=== PATIENT | female | born 1950 | race Caucasian/White ===

== ENCOUNTER 2018-07-03 09:01 | Outpatient (CLI) | payer OTHER, SELFPAY ==
[2018-07-03 12:31] LABS: Cholesterol 217 mg/dL (50-200); HDL Cholesterol 53 mg/dL (40-60); LDL CHOLESTEROL 136 mg/dL (<100); Triglyceride 172 mg/dL (30-150)
== END 2018-07-03 09:21 ==
LOC: LOS 09:02 → LBN 09:21
PROVIDERS: PCP Emergency Medicine; Visit Provider Emergency Medicine
DX: E78.5 Hyperlipidemia, unspecified (principal)
CPT/HCPCS: 36415; 80061; 83721

== ENCOUNTER 2018-08-04 00:08 | Outpatient (CLI) | payer OTHER, SELFPAY ==
--- NOTE | 2018-08-04 05:40 | MERGEMPI_ITS ---
*[facility]* *[facility]* [address] [place] [address] Myocardial Perfusion Imaging - SPECT Micha protocol Date of study: 08/04/2018 *PATIENT PRESENTATION* Height: 170.2cm (67in) Blood Pressure: Weight: 77.3kg (170lb) BSA: 1.93m^2 Referring physician: Leo Moise MD Ordering physician: Andrea Kay Impressions: Normal perfusion by Tc99m Sestamibi Imaging. Summary: 1. Myocardial perfusion imaging: No myocardial perfusion defects noted. 2. The calculated left ventricular ejection fraction after stress: 80%. Indication: R06.02. History: Patient's presenting symptoms: asymptomatic. REASON FOR VISIT: DYSPNEA ON EXERTION. PATIENT REPORTS 2 SEPARATE EPISODES OF SHORTNESS OF BREATH WHILE WALKING UP HILL, AND AGAIN WHILE WALKING UP STAIRS. PATIENT REPORTS THIS SHORTNESS OF BREATH IS NOT HER NORMAL. PATIENT DENIES ANY CHEST PAIN OR PRESSURE. PAST MEDICAL HISTORY: HYPOTHYROIDISM, HYPERLIPIDEMIA. Risk factors: Family history of coronary artery disease. Dyslipidemia. Cholesterol: 217mg/dl. HDL: 53mg/dl. LDL: 136mg/dl. Triglycerides: 172mg/dl. ALLERGIES: SULFA. SHELLFISH. AZITHROMYACIN. FLU VACCINE. MEDICATIONS: ASPIRIN 81 MG DAILY. LEVOTHYROXINE 88 MCG DAILY. CRESTOR 20 MG DAILY. VITAMIN B12 1000 MCG IM Q 3 WEEKS. DOCOSATE SODIUM 2 CAPSULES Q HS. Imaging Technique: Protocol: Micha protocol. Acquisition: Gated SPECT; 1 day - rest/stress. The patient was imaged in the supine position. Attenuation correction used. Isotope administration: - Rest. Tc[99m]-sestamibi. Dose: 10.2mCi. Injection time: 08:15 AM. Injection to stress time: 00:45. - Stress. Tc[99m]-sestamibi. Dose: 31.8mCi. Injection time: 09:55 AM. 1-2 min before end of exercise Baseline ECG: SINUS RHYTHM, INCOMPLETE BUNDLE BRANCH BLOCK. HEART RATE 72 BPM. Stress protocol: + +---+ + !Stage !HR !BP (mmHg) ! + +---+ + !Baseline supine !72 !160/86 (111)! + +---+ + !Baseline standing !91 !150/84 (106)! + +---+ + !Stage I; 1.7mph, 10degrees; 3 min !130!218/80 (126)! + +---+ + !Stage II; 2.5mph, 12degrees; 3 min!148!220/70 (120)! + +---+ + !Recovery; 1 min !138!220/70 (120)! + +---+ + !Recovery; 3 min !101!190/70 (110)! + +---+ + !Recovery; 6 min !90 !160/72 (101)! + +---+ + * Stress results: The rate-pressure product for the peak heart rate and blood pressure was 50429ta Hg/min. Stress ECG: TREADMILL PORTION OF MPI STRESS TEST ENDED IN 7MIN DUE TO PATIENT REACHING 100% TARGET HEART RATE. HYPERTENSIVE AT BASELINE. APPROPRIATE HEART RATE AND BLOOD PRESSURE RESPONSE TO EXERCISE. MAXIMAL HEART RATE ACHIEVED 160 BPM, 105% OF TARGET. RARE PVC NOTED IN RECOVERY. 05/22 LEFT SIDED CHEST TIGHTNESS NOTED AT THE END OF STAGE 2, RESOLVED WITH CESSATION OF EXERCISE. UPSLOPING ST SEGMENT DEPRESSION NOTED IN LEADS V3, V4, V5, AND V6 AT 2 MIN EXERCISE, RETURNING TO BASELINE BY 3 MINUTES RECOVERY. ABOVE AVERAGE FUNCTIONAL CAPACITY FOR EXERCISE. Myocardial perfusion: Imaging information: gated. No myocardial perfusion defects noted. Ventricular Function (Wall Motion): The calculated left ventricular ejection fraction after stress: 80%. Study data: Leo Moise MD supervised and was readily available during the procedure. This study was interpreted by [facility]. Study status: Routine. Consent: The risks, benefits, and alternatives to the procedure were explained to the patient and informed consent was obtained. Procedure: Initial setup. A baseline ECG was recorded. Surface ECG leads and manual cuff blood pressure measurements were monitored. Heart sounds: Normal. Lung sounds: Normal. Treadmill exercise testing was performed using the Micha protocol. Study completion: All catheters inserted during the procedure were removed. The patient tolerated the procedure well and was discharged from the lab. Discharge: The patient left the laboratory in stable condition. Birthdate: Patient birthdate: 1950. Sex: Gender: female. Study date: Study date: 08/04/2018. Study time: 00:01 AM. Electronically signed by Leo Moise MD 08/04/2018 16:51
== END 2018-08-04 00:28 ==
PROVIDERS: PCP Emergency Medicine; Visit Provider Emergency Medicine
DX: R06.02 Shortness of breath (principal); E78.5 Hyperlipidemia, unspecified; E03.9 Hypothyroidism, unspecified; Z82.49 Family history of ischemic heart disease and other diseases of the circulatory system
CPT/HCPCS: 78452; 93017

== ENCOUNTER 2018-09-26 13:57 | Outpatient (CLI) | payer OTHER, SELFPAY ==
--- NOTE | 2018-09-26 14:41 | DI.CT_ITS ---
SYMPTOMS/DIAGNOSIS: ACUTE LEFT FLANK PAIN, R10.[address]: A noncontrast exam was performed from the level of the adrenals through the ischial tuberosities without IV or oral contrast. There is no evidence of hydronephrosis or urinary tract calculi. A cyst is noted at the upper pole of the right kidney. The kidneys are normal in size and orientation. No perinephric collections are seen. The inferior portions of the liver and spleen are unremarkable. The gallbladder, adrenals and pancreas appear normal. The appendix appears normal. There is a normal quantity of fecal material. There is no bowel dilatation or inflammatory changes. The uterus and ovaries are unremarkable. The bladder is nearly empty. The aorta is normal in diameter. Degenerative disc changes are seen at L1-2. IMPRESSION: No evidence of urinary tract calculi or other acute abnormality.
== END 2018-09-26 14:17 ==
PROVIDERS: PCP Emergency Medicine; Visit Provider Emergency Medicine
DX: R10.32 Left lower quadrant pain (principal); N28.1 Cyst of kidney, acquired
CPT/HCPCS: 74176

== ENCOUNTER 2019-02-20 00:12 | Outpatient (CLI) | payer OTHER, SELFPAY ==
--- NOTE | 2019-02-20 09:07 | DI.RAD_ITS ---
EXAM: XR HIP RT COMPLETE AP PELVIS INDICATION: right hip pain, ARTHRALGIA OF RT HIP, M25.559. COMPARISON: No exams were available for comparison TECHNIQUE: 2D digital imaging was performed. FINDINGS: The bony structures are normally mineralized. The hip joint is intact. No pelvic bone abnormality is seen. IMPRESSION: Normal right hip.
== END 2019-02-20 00:32 ==
PROVIDERS: PCP Emergency Medicine; Visit Provider Emergency Medicine
DX: M25.551 Pain in right hip (principal)
CPT/HCPCS: 73502

== ENCOUNTER 2019-07-14 10:36 | Outpatient (REF) | payer OTHER, SELFPAY ==
[2019-07-14 14:29] LABS: Bilirubin Negative (Negative); Blood Negative (Negative); Clarity Clear (Clear); Glucose Negative (Negative); Ketones Negative (Negative); Leukocyte Esterase Moderate (Negative); Nitrite Negative (Negative); Specific Gravity 1.015 (1.005-1.025); Urobilinogen 0.2 EU/dL (Up TO 0.2); pH 7.5 (5-8)
[2019-07-14 14:47] LABS: Epithelial Cells Few HPF (Negative); RBC 0-2 HPF (0-2)
[2019-07-14 14:48] LABS: Bacteria Moderate HPF (Negative); C & S Indicated? C&S Done As Ordered; Casts Negative LPF (Negative); Crystals Negative HPF (Negative); Mucus Negative (Negative)
== END 2019-07-14 10:56 ==
LOC: LBN 10:36
PROVIDERS: PCP Emergency Medicine; Visit Provider Family Medicine
DX: R30.0 Dysuria (principal)
CPT/HCPCS: 87077; 81003; 81015; 87086; 87186

== ENCOUNTER 2019-09-29 20:52 | Outpatient (REF) | payer OTHER, SELFPAY ==
[2019-09-29 20:08] LABS: Calculated LDL 147 mg/dL (<100); Cholesterol 227 mg/dL (<200); HDL Cholesterol 52 mg/dL (40-60); TSH 1.28 uIU/mL (0.36-3.74); Triglyceride 141 mg/dL (<150)
== END 2019-09-29 21:12 ==
LOC: LBN 20:52
PROVIDERS: PCP Emergency Medicine; Visit Provider Emergency Medicine
DX: E03.9 Hypothyroidism, unspecified (principal); E78.5 Hyperlipidemia, unspecified
CPT/HCPCS: 80061; 84443

== ENCOUNTER 2020-01-17 07:35 | Emergency (ER) | payer OTHER, SELFPAY ==
[2020-01-17] VITALS (9 sets, daily range): BP systolic 117–169; BP diastolic 58–80; PULSE 61–84; RESP 11–17; TEMP 36.7; O2SAT 98–100
[2020-01-17 07:47] LABS: Bilirubin Negative (Negative); Blood Negative (Negative); Clarity Clear (Clear); Glucose Negative (Negative); Ketones Negative (Negative); Leukocyte Esterase Negative (Negative); Nitrite Negative (Negative); Specific Gravity 1.015 (1.005-1.025); Urobilinogen 0.2 EU/dL (Up TO 0.2)
[2020-01-17] MEDS: Normal Saline 1,000 ML 125 ML IV (08:00)
[2020-01-17] MEDS: Normal Saline Flush 10 ML SYR IVP (08:00)
--- NOTE | 2020-01-17 08:15 | DI.CT_ITS ---
EXAM: CT ABDOMEN PELVIS W CLINICAL HISTORY: LLQ pain 3 days, tender, nonperitoneal, ua neg. TECHNIQUE: Imaging Protocol: Axial computed tomography images with coronal and sagittal reformatted images were created and reviewed CONTRAST MATERIAL: Intravenous: Omnipaque 350 Contrast volume:80 cc. No oral contrast. COMPARISON: CT CT renal colic wo from 09/26/2018 FINDINGS: ABDOMEN: Lung Bases: Normal where visualized. Liver: Normal density. No measurable mass. Gallbladder and biliary tract: No radiodense calculus or dilation. Pancreas: Normal density, no abnormal calcifications or inflammatory process. Spleen: Normal. Kidneys: Normal size, contour and axis. No radiodense stones or obstructive uropathy. No masses seen. Right renal cyst. Adrenal glands: No masses seen. Abdominal Aorta: Abdominal portion non-dilated. There are surgical clips adjacent to the left side of the aorta. Superior to the surgical clips, to the left of the aorta, there is an elongated low dens ity lesion measuring 7 cm in length. The findings could represent adenopathy versus post operative c ollection. This appears unchanged when compared with the previous exam. Clinical correlation is rec ommended. PELVIS: Bladder: Symmetric distention, no gross wall thickening. Bowel: There is wall thickening and inflammation at the junction of the descending and sigmoid colon, consistent with diverticulitis. There is a normal quantity of stool. There is no evidence of obstr uction. There is no evidence of abscess. Peritoneal cavity: No free air. There is trace free fluid. Bones: Within normal limits. Reproductive organs: Within normal limits. Impression: Diverticulitis at the junction of the descending and sigmoid colon. Stable appearance of elongated d ensity adjacent to the left side of the aorta which could be postsurgical. RADIATION DOSE DELIVERED: Total DLP DATA REPOSITORY: All CT scans at this facility are submitted to the National Radiology Data Registry (NRDR) Dose Index Registry (DIR) with the [employer] (ACR). RADIATION OPTIMIZATION: All CT scans at this facility use at least one of these dose optimization te chniques: automated exposure control; mA and/or kV adjustment per patient size (includes targeted exa ms where dose is matched to clinical indication); or iterative reconstruction.
--- NOTE | 2020-01-17 08:23 | ED.GENADUL_ITS ---
Discharge Plan Disposition Patient Disposition: HOME Condition: Stable Discharge Details Chief Complaint: Abd Prob Clinical Impression: Acute diverticulitis Primary Care Provider: Andrea Kay ED Provider: Deondre Glynn Home Meds and New Rx's Prescriptions: New amoxicillin-pot clavulanate 875-125 mg tablet 1 tab PO BID Qty: 19 RF: 0 Continued cyanocobalamin (vitamin B-12) 1,000 MCG/1 ML solution 1,000 mcg IJ [id number] RF: 0 simvastatin [Zocor] 20 mg tablet 20 mg PO DAILY Qty: 90 RF: 3 levothyroxine 88 mcg tablet 88 mcg PO DAILY Qty: 90 RF: 3 Discharge Instructions Instructions: Diverticulitis (ED), Diverticulitis Diet (ED) Additional Instructions: Please take acetaminophen (tylenol) - 650mg every 6 hours by mouth as needed for pain. Please take ibuprofen over the counter. Take 600mg by mouth every 6 hours as needed for pain. Please take full course of antibiotic as prescribed. See instructions on diverticulitis diet. I recommend maintaining a clear liquid diet today to allow for bowel rest. Please contact your primary care physician to arrange follow-up. Call on Saturday. Return to the ER for any worsening or new concerning symptoms. Referrals: Andrea Kay, DO [Primary Care Provider] - Medical Decision Making A [age]-year-old female here with left lower quadrant pain with past 3 to 4 days, tender left lower quadrant with no peritoneal findings. Concern for acute diverticulitis, consider microperforation and abscess. Patient has not had similar in the past. Consider other etiologies. Urinalysis reviewed and is not consistent with a renal stone. Obtain CT of the abdomen pelvis to assess for acute surgical pathology. Maintain n.p.o., IV fluid maintenance. 9:50 --CT the abdomen pelvis was interpreted by radiology: Segment of wall t hickening at the junction of the sigmoid and descending colon, consistent with mild acute diverticulitis. No evidence of perforation or drainable collection. Trace pelvic ascites. Plan to initiate treatment with Augmentin and have patient follow-up with her primary care physician. Usual and customary discharge instructions were reviewed with the patient. HPI General Mode of arrival: ambulatory . Date/Time Provider Initiated Documentation: 01/17/20 08:05 . Limitations to Documentation: no limitations . Information obtained by: patient . HPI Narrative: 69-year-old female presents with chief complaint of left lower quadrant pain. Pain is been present for the past 3 to 4 days. Pain is constant and severe. Pain worse on palpation of the left lower abdomen. She has associated nausea. No vomiting. She did have some loose stool yesterday. No bright red blood per rectum or melena. No fever. No urinary symptoms. Related Data Home Medications Medication Instructions Recorded Confirmed cyanocobalamin (vitamin B-12) 1,000 mcg IJ [id number] vial 12/05/12 01/17/20 simvastatin 20 mg tablet 20 mg PO DAILY #90 tab 12/30/18 01/17/20 levothyroxine 88 mcg tablet 88 mcg PO DAILY #90 tab-cap 04/10/19 01/17/20 amoxicillin-pot clavulanate 1 tab PO BID #19 tab 01/17/20 Previous Rx's Medication Instructions Recorded simvastatin 20 mg tablet 20 mg PO DAILY #90 tab 12/30/18 levothyroxine 88 mcg tablet 88 mcg PO DAILY #90 tab-cap 04/10/19 amoxicillin-pot clavulanate 1 tab PO BID #19 tab 01/17/20 Allergies Allergy/AdvReac Type Severity Reaction Status Date / Time influenza virus vaccine, Allergy Severe THROAT Unverified 01/17/20 07:47 specific ISSUES 1.5 HRS AFTER INJECTION shellfish derived Allergy Unknown Unverified 01/17/20 07:47 Sulfa (Sulfonamide Allergy Unknown Unverified 01/17/20 07:47 Antibiotics) azithromycin AdvReac Severe PALPITATIONS, Unverified 01/17/20 07:47 VISUAL CHANGES, THRUSH erythromycin base AdvReac Unknown Unverified 01/17/20 07:47 General Stated Complaint: Abd Prob CHRISTOPHE: 3 Review of Systems All systems reviewed & are unremarkable except as noted in HPI and below Constitutional Constitutional: Denies fever(s) Gastrointestinal Gastrointestinal: Reports as per HPI COUNT INCLUDES [facility] Medical History (Updated 01/17/20 @ 09:52 by Deondre Glynn MD) Atrophic gastritis (Acute) Elevated lipids (Acute) Right hip pain (Acute) Surgical History Tonsillectomy Family History Mother Lumbago Father Myocardial infarction Maternal Aunt Myocardial infarction Family History Heart disease Neoplasm BREAST Exam Const General: cooperative and no acute distress HENMT Mouth: moist mucous membranes Eyes Conjunctivae: normal conjunctivae Sclera: normal sclerae Neck Neck: trachea midline and supple Resp Auscultation: clear to auscultation bilaterally, no rales, no rhonchi and no wheezes Cardio Rate: regular rate and not tachycardic Rhythm: regular rhythm GI Palpation: soft, not firm, no guarding, no masses, not rigid and tender in the L LQ; with no rebound tenderness Auscultation: normal bowel sounds Skin General skin exam: no rashes or lesions noted Neuro General: patient alert, patient awake and tone normal Extrem General: no edema Psych Appearance: grossly normal Mental Status: mental status grossly normal Course Vital Signs Vital signs: Vital Signs Temperature 36.7 C 01/17/20 07:40 Pulse 84 01/17/20 07:40 Respiratory Rate 16 01/17/20 07:40 Blood Pressure 169/80 H 01/17/20 07:40 Pulse Oximetry 98 01/17/20 07:40 Temperature 36.7 C 01/17/20 07:40 Temperature Source Skin 01/17/20 07:40 Pulse 84 01/17/20 07:40 Respiratory Rate 16 01/17/20 07:40 Respiratory Effort Non-Labored 01/17/20 07:40 Blood Pressure 169/80 H 01/17/20 07:40 Blood Pressure Position Sitting 01/17/20 07:40 Pulse Oximetry 98 01/17/20 07:40 Pain Level 1 01/17/20 07:40 Lab/Test Results Lab/Test Results: Laboratory Tests Range/Units 01/17/20 07:41 Urine Color (Yellow) Yellow Urine Clarity (Clear) Clear Urine pH (5-8) 7.0 Ur Specific [place] (1.005-1.025) 1.015 Urine Protein (Negative) mg/dL Negative Urine Ketones (Negative) mg/dL Negative Urine Blood (Negative) Negative Urine Nitrite (Negative) Negative Urine Bilirubin (Negative) Negative Urine Urobilinogen (Up TO 0.2) EU/dL 0.2 Ur Leukocyte Esterase (Negative) Negative Urine Glucose (Negative) mg/dL Negative
[2020-01-17 08:29] LABS: Abs Immature Grans 0.06 10^3/uL (0.0-0.06); Absolute Eosinophil Count 0.19 10^3/uL (0.0-0.7); Absolute Monocyte Count 0.78 10^3/uL (0.1-0.8); Absolute Neutrophil Count 7.62 10^3/uL (1.2-6.7); Basophils % 0.5; Eosinophils % 1.7; HCT 42.9 % (36.0-46.0); HGB 14.5 g/dL (11.2-15.7); Immature Grans % 0.5; Lymphocytes % 21.6; MCH 29.1 pg (27.0-33.0); MCHC 33.8 % (32.0-36.0); MCV 86.1 fL (80-95); MPV 10.2 fL (8.0-11.0); Neutrophils % 68.7; Nucleated RBC 0 %; Platelet Count 301 10^3/uL (130-400); RBC 4.98 10^6/uL (3.93-5.22); RDW 12.7 % (11.7-14.6); RDW-SD 39.8 fL; WBC 11.09 10^3/uL (4.4-10.8)
[2020-01-17 08:37] LABS: Absolute Basophil Count 0.06 10^3/uL (0.0-0.2)
[2020-01-17 08:43] LABS: ALT 30 U/L (14-59); AST 20 U/L (15-37); Albumin 4.5 g/dL (3.4-5.0); Alkaline Phosphatase 93 U/L (46-116); Anion Gap 8.1 mmol/L (3-11); BUN 15 mg/dL (7-18); Bilirubin, Total 1.1 mg/dL (0.2-1.0); CO2 26.9 mmol/L (21.0-32.0); CREATININE 0.89 mg/dL (0.55-1.02); Calcium 9.7 mg/dL (8.5-10.1); Chloride 102 mmol/L (98-107); Glucose 97 mg/dL (74-106); Lipase 105 U/L (73-393); Potassium 3.6 mmol/L (3.5-5.1); Sodium 137 mmol/L (136-145); Total Protein 8.1 g/dL (6.4-8.2)
[2020-01-17] MEDS: Omnipaque 350 MG/ML 100 ML BTL IJ (09:14)
--- NOTE | 2020-01-17 09:14 | NUR.NOTE ---
Nursing Note: ZACH Pérez called stating that the patient stated that CT contrast gives her severe palpitations. I told Dr. Deondre Glynn, he stated to give the patient a reduced dose and when she returns to put her on the monitor. I told ZACH Givens about the reduced dose and MATTHIEU Haque about the monitoring. Beverly Turner
--- NOTE | 2020-01-17 09:42 | DI.VRAD_ITS ---
PROCEDURE INFORMATION: Exam: CT Abdomen And Pelvis With Contrast Exam date and time: 01/17/2020 8:24 AM Age: 69 years old Clinical indication: Abdominal pain; Patient HX: Llq pain 3 days, tender, ua neg, nonperitoneal TECHNIQUE: Imaging protocol: Computed tomography of the abdomen and pelvis with intravenous contrast. COMPARISON: CR XR HIP RT COMPLETE AP PELVIS 02/20/2019 8:55 AM FINDINGS: Liver: Normal. No mass. Gallbladder and bile ducts: Normal. No calcified stones. No ductal dilation. Pancreas: Normal. No ductal dilation. Spleen: Normal. No splenomegaly. Adrenals: Normal. No mass. Kidneys and ureters: Simple appearing right cortical renal cyst measures 4 x 2.6 cm. No hydronephrosis. Stomach and bowel: Segment of wall thickening at the junction of the sigmoid and descending colon, consistent with mild acute diverticulitis. No evidence of perforation or drainable collection. Mild pericolonic inflammatory stranding. Appendix: No evidence of appendicitis. Intraperitoneal space: Trace pelvic ascites. Vasculature: Unremarkable. No abdominal aortic aneurysm. Lymph nodes: Unremarkable. No enlarged lymph nodes. Bladder: Unremarkable as visualized. Reproductive: Unremarkable as visualized. Bones/joints: Unremarkable. No acute fracture. Soft tissues: Unremarkable. IMPRESSION: 1. Segment of wall thickening at the junction of the sigmoid and descending colon, consistent with mild acute diverticulitis. No evidence of perforation or drainable collection. 2. Trace pelvic ascites. Dictated and Authenticated by: Alena Obando MD. Ordering:NYDIA Mendosa MD
[2020-01-17] MEDS: Amoxicillin 875/Clav. 125 TAB PO (10:00)
== END 2020-01-17 10:05 | disposition home or self-care (01) ==
PROVIDERS: Emergency Provider Student in an Organized Health Care Education/Training Program; PCP Emergency Medicine
DX: K57.32 Diverticulitis of large intestine without perforation or abscess without bleeding (principal)
CPT/HCPCS: 80053; 83690; 96360; 96361; 99285; 74177; 81003; 85025; 99284; J3490

== ENCOUNTER 2021-01-31 11:06 | Outpatient (CLI) | payer OTHER, SELFPAY ==
--- NOTE | 2021-01-31 08:30 | DI.CT_ITS ---
Exam(s) CT ABDOMEN PELVIS W EXAM: CT ABDOMEN PELVIS W CLINICAL HISTORY: abd pain, R10.9 TECHNIQUE: Imaging Protocol: Axial computed tomography images with coronal and sagittal reformatted images were created and reviewed CONTRAST MATERIAL: Intravenous: Omnipaque 350 Contrast volume:100 mL Oral: Yes COMPARISON: CT CT ABDOMEN PELVIS W from 01/17/2020 FINDINGS: ABDOMEN: Lung Bases: Normal where visualized. Liver: Normal density. No measurable mass. Portal, Superior Mesenteric, and Splenic Veins: Unremarkable. Gallbladder and Biliary Tract: No radiodense calculus or dilation. Pancreas: Normal density, no abnormal calcifications or inflammatory process. Spleen: Normal. Adrenals: No masses seen. Kidneys: Normal size, contour and axis. No radiodense stones or obstructive uropathy. There is a stab le simple right renal cyst. No follow-up is recommended. Abdominal Aorta: Abdominal portion non-dilated. Mild atherosclerosis. Bowel: No obstruction or bowel wall thickening. No appendicitis. Peritoneal Cavity: No ascites, collection or mesenteric inflammatory response. No free air.There is stable soft tissue in the retroperitoneum to the left of the aorta. It lies adjacent to surgical cli ps in the retroperitoneum. This may represent scar tissue or adenopathy. Lymph Nodes: Within normal limits. Bones: Within normal limits for the patient's age. Soft Tissues: Unremarkable. PELVIS: Bladder: Symmetric distention, no gross wall thickening. Reproductive Organs: Unremarkable as visualized. Lymph Nodes: Within normal limits. Bones: Within normal limits for the patient's age. IMPRESSION: 1. No acute abdominal pelvic process. 2. Stable retroperitoneal soft tissue to the left of the aorta. This may be postsurgical or represen t lymph nodes. It is unchanged compared to multiple prior examinations. RADIATION DOSE DELIVERED: 963.28mGy.cm Total DLP DATA REPOSITORY: All CT scans at this facility are submitted to the National Radiology Data Registry (NRDR) Dose Index Registry (DIR) with the [employer] (ACR). RADIATION OPTIMIZATION: All CT scans at this facility use at least one of these dose optimization te chniques: automated exposure control; mA and/or kV adjustment per patient size (includes targeted exa ms where dose is matched to clinical indication); or iterative reconstruction.
[2021-01-31 10:22] LABS: Abs Immature Grans 0.06 10^3/uL (0.0-0.06); Absolute Basophil Count 0.05 10^3/uL (0.0-0.2); Absolute Eosinophil Count 0.25 10^3/uL (0.0-0.7); Absolute Lymphocyte Count 1.86 10^3/uL (1.2-3.4); Absolute Monocyte Count 0.62 10^3/uL (0.1-0.8); Absolute Neutrophil Count 4.87 10^3/uL (1.2-6.7); Basophils % 0.6; Eosinophils % 3.2; HCT 41.4 % (36.0-46.0); Immature Grans % 0.8; Lymphocytes % 24.1; MCH 28.5 pg (27.0-33.0); MCHC 33.8 % (32.0-36.0); MCV 84.1 fL (80-95); MPV 9.8 fL (8.0-11.0); Neutrophils % 63.3; Nucleated RBC 0 %; Platelet Count 265 10^3/uL (130-400); RBC 4.92 10^6/uL (3.93-5.22); RDW 12.8 % (11.7-14.6); RDW-SD 38.9 fL; WBC 7.71 10^3/uL (4.4-10.8)
[2021-01-31] MEDS: Omnipaque 350 MG/ML 50 ML BTL IJ (11:08)
[2021-01-31] MEDS: Breeza Beverage 473 ML BTL PO (11:12)
[2021-01-31 11:24] LABS: ALT 76 U/L (14-59); AST 54 U/L (15-37); Albumin 4.3 g/dL (3.4-5.0); Alkaline Phosphatase 88 U/L (46-116); Anion Gap 11.3 mmol/L (3-11); BUN 15 mg/dL (7-18); Bilirubin, Total 0.7 mg/dL (0.2-1.0); CO2 25.7 mmol/L (21.0-32.0); CREATININE 0.8 mg/dL (0.55-1.02); Calcium 9.3 mg/dL (8.5-10.1); Chloride 104 mmol/L (98-107); Glucose 86 mg/dL (74-106); Sodium 141 mmol/L (136-145); Total Protein 7.9 g/dL (6.4-8.2)
[2021-01-31] MEDS: Omnipaque 350 MG/ML 100 ML BTL IJ (12:15)
== END 2021-01-31 11:26 ==
PROVIDERS: PCP Emergency Medicine; Visit Provider Emergency Medicine
DX: R10.9 Unspecified abdominal pain (principal)
CPT/HCPCS: 80053; 74177; 85025; J3490; Q9967

== ENCOUNTER 2021-02-23 13:36 | Outpatient (REF) | payer OTHER, SELFPAY ==
[2021-02-23 19:54] LABS: ALT 49 U/L (14-59); AST 31 U/L (15-37); Albumin 4.7 g/dL (3.4-5.0); Alkaline Phosphatase 89 U/L (46-116); Bilirubin, Total 0.7 mg/dL (0.2-1.0); GGT 37 U/L (5-55); TSH (W/Ref FT4) 0.91 uIU/mL (0.36-3.74); Total Protein 7.9 g/dL (6.4-8.2); Vitamin B12 441 pg/mL (193-986)
[2021-02-23 20:07] LABS: Bilirubin, Direct 0.1 mg/dL (0.0-0.2)
== END 2021-02-23 13:37 | disposition home or self-care (01) ==
LOC: LBN 13:36
PROVIDERS: PCP Family Medicine; Visit Provider Family Medicine
DX: E03.9 Hypothyroidism, unspecified; E53.8 Deficiency of other specified B group vitamins; R10.84 Generalized abdominal pain
CPT/HCPCS: 80076; 82607; 82977; 84443

== ENCOUNTER 2021-03-14 12:02 | Outpatient (REF) | payer OTHER, SELFPAY ==
[2021-03-14 15:56] LABS: Bilirubin Negative (Negative); Blood Trace-intact (Negative); Clarity Sl Cloudy (Clear); Glucose Negative (Negative); Ketones Negative (Negative); Leukocyte Esterase Small (Negative); Nitrite Negative (Negative); Specific Gravity 1.025 (1.005-1.025); Urobilinogen 0.2 EU/dL (Up TO 0.2); pH 6.5 (5-8)
[2021-03-14 16:26] LABS: WBC >50 HPF (0-5)
[2021-03-14 16:27] LABS: Bacteria Few HPF (Negative); C & S Indicated? Yes; Crystals Negative HPF (Negative); Epithelial Cells Negative HPF (Negative); Mucus Negative (Negative); Other Cells Mod Transitional (Negative)
== END 2021-03-14 12:03 | disposition home or self-care (01) ==
LOC: LBN 12:02
PROVIDERS: PCP Family Medicine; Visit Provider Family Medicine
DX: R30.0 Dysuria (principal)
CPT/HCPCS: 87077; 81003; 81015; 87086; 87186

== ENCOUNTER 2021-05-24 16:13 | Outpatient (REF) | payer OTHER, SELFPAY ==
[2021-05-25 16:56] LABS: COVID-19 RT-PCR UVMMC Result Negative (Negative)
== END 2021-05-24 16:14 | disposition home or self-care (01) ==
LOC: LBN 16:13
PROVIDERS: PCP Family Medicine; Visit Provider Nurse Practitioner Family
DX: Z20.822 Contact with and (suspected) exposure to COVID-19 (principal)
CPT/HCPCS: U0003

== ENCOUNTER 2021-08-10 17:11 | Outpatient (REF) | payer OTHER, SELFPAY ==
[2021-08-11 00:20] LABS: COVID-19 RT-PCR UVMMC Result Positive (Negative)
== END 2021-08-10 17:12 | disposition home or self-care (01) ==
LOC: LBN 17:11
PROVIDERS: PCP Family Medicine; Visit Provider Nurse Practitioner Family
DX: Z20.822 Contact with and (suspected) exposure to COVID-19 (principal)
CPT/HCPCS: U0003

== ENCOUNTER 2021-09-28 18:21 | Outpatient (REF) | payer OTHER, SELFPAY ==
[2021-09-28 12:19] LABS: Bilirubin Negative (Negative); Blood Negative (Negative); Clarity Clear (Clear); Glucose Negative (Negative); Ketones Negative (Negative); Leukocyte Esterase Negative (Negative); Nitrite Negative (Negative); Urobilinogen 0.2 EU/dL (Up TO 0.2); pH 6.5 (5-8)
== END 2021-09-28 18:22 | disposition home or self-care (01) ==
LOC: LBN 18:21
PROVIDERS: PCP Family Medicine; Visit Provider Family Medicine
DX: R30.0 Dysuria (principal)
CPT/HCPCS: 81003

== ENCOUNTER → 2022-02-26 01:26 | Outpatient (CLI) | payer OTHER, SELFPAY ==
--- NOTE | 2022-02-26 07:00 | DI.US_ITS ---
APPROVED REPORT EXAM: Comprehensive 2D, Doppler, and color-flow Echocardiogram Patient Location: Out-Patient Hand [employer] Supervisor: Julianne Rivera RDCS (AE) Indications: Palpitations, aortic regurgitation, murmur Other Information Study Quality: Good Conclusion Normal left ventricular wall thickness and chamber size. Estimated ejection fraction is 60 to 65%. Wall motion is normal Normal right ventricular size and systolic function Both atria are normal in size The aortic valve is trileaflet with trace to mild regurgitation There is no additional structural or hemodynamically significant valvular disease Estimated right ventricular systolic pressure is 25 mmHg Wall motion Left Ventricle The left ventricle is normal size. The left ventricular systolic function is normal. The left ventric ular ejection fraction is within the normal range. There is normal left ventricular wall thickness. T here is normal LV segmental wall motion. There is no ventricular septal defect visualized. LVEF is 60 -65%. Right Ventricle The right ventricle is normal size. The right ventricular systolic function is normal. The RVSP is 25 .1 mmHg. Atria The left atrium size is normal. The right atrium size is normal. The interatrial septum is intact wit h no evidence for an atrial septal defect. Aortic Valve The aortic valve is normal in structure. There is no aortic valvular stenosis. Trace to mild aortic r egurgitation. Mitral Valve The mitral valve is normal in structure. No evidence of mitral valve stenosis. Trace mitral regurgita tion. Tricuspid Valve The tricuspid valve is normal in structure. There is no tricuspid valve stenosis. Trace tricuspid reg urgitation. Pulmonic Valve The pulmonary valve is normal in structure. There is no pulmonic valvular stenosis. Trace to mild pul iban regurgitation. Great Vessels The aortic root is normal in size. The ascending aorta is normal in size. Aortic arch is normal in ca liber. IVC is normal in size and collapses >50% with inspiration. Pericardium There is no pericardial effusion. 2D Dimensions IVSD d PLAX 0.81 cm F: 0.6-1.0 LV Vol A2C d MOD 89.8 mL LVPW d PLAX 0.83 cm F: 0.6 - 1.0 LV Vol A4C d MOD 74.6 mL LVID d PLAX 4.17 cm F: 3.8 - 5.2 LA vol/ BSA A2C s A-L 26.5 mL/m2 LVDs 2.70 cm F: 2.2 - 3.5 LA vol/ BSA A4C s A-L 19.8 mL/m2 Ao Root d 2.74 cm F: 2.7 - 3.3 LA Vol/ BSA Biplane s A-L 23.0 mL/m2 RA Area A4C 13.72 cm2 LA Area A4C s MOD 14.70 cm2 RA Vol/ BSA A4C s A-L 15.5 mL/m2 LA Area A2C s MOD 16.97 cm2 Ao Asc Diam d 2.77 cm F: 2.3 - 3.1 LV EF A4C MOD 60.8 % LV EF Teichholz 65.0 % LV EF A2C MOD 65.1 % LVEF (Caballero's) 62.56 % F: 54 - 74 LV EF Biplane MOD 62.6 % LV Volume 63.22 mL F: 46 - 106 SV 51.67 mL LV Volume Index 33.62 mL/m2 F: 29 - 61 SV Index 27.43 mL/m2 LV Vol Biplane MOD 82.6 mL FS 35.20 % M-Mode TAPSE 2.68 cm (M/F) >1.7 LV Diastology MV E' medial 0.080 (>0.07 m/s) E/A Ratio 0.9 LV E/e MED 8.70 (<14) MV E Vmax 0.70 (0.4-1.3 m/s) MV E' lateral 0.132 (>0.1 m/s) MV A Vmax 0.80 (0.4-1.3 m/s) LV E/e LAT 5.25 (<14) MV E/A Ratio 0.85 MV E/E' medial 8.72 MV E/E' lateral 5.27 Aortic Valve LVOT Area 3.07 cm2 AoV Area Vmax 2.53 cm2 LVOT Vmax 1.27 m/s AoV Area/ BSA (Vmax) 1.34 cm2/m2 LVOT Mean Jose Alfredo. 0.76 m/s ROBERTO Mean Jose Alfredo. 2.23 cm2 LVOT Peak Grad 6.4 mmHg ROBERTO Mean Jose Alfredo. Index 1.18 cm2/m2 LVOT Mean Grad 2.8 mmHg AR DT 1814 msec LVOT VTI 0.251 m AR PHT 526 msec LVOT Diam s 1.95 cm AoV Vmax 1.54 m/s Velocity Ratio 0.82 AoV Mean Jose Alfredo. 1.05 m/s AoV Peak Grad 9.5 mmHg LVOT SV 77.08 mL AoV Mean Grad 4.9 mmHg AoV VTI 0.288 m AoV Area VTI 2.68 cm2 AoV Area/ BSA (VTI) 1.42 cm/m2 Mitral Valve MV DT 206 (160-240 msec) MV PHT 60 msec MV Area PHT 3.69 cm2 Pulmonary Valve PV Vmax 1.21 (0.5-1.5 m/s) RVOT Peak Gr. 2.61 mmHg PV Peak Grad 5.8 mmHg RVOT Mean Gr. 1.35 mmHg PV Mean Grad 2.8 mmHg RVOT VTI 0.177 m PV VTI 0.230 m RVOT Vmax 0.81 m/s Tricuspid Valve TR Peak Grad 22.1 mmHg TR Vmax 2.35 m/s RA Pressure 3.00 mmHg RVSP (TR) 25.1 mmHg
== END ==
PROVIDERS: PCP Family Medicine; Visit Provider Family Medicine
DX: R00.2 Palpitations (principal); R01.1 Cardiac murmur, unspecified; I35.1 Nonrheumatic aortic (valve) insufficiency
CPT/HCPCS: 93306

== ENCOUNTER 2022-03-22 18:29 | Outpatient (REF) | payer OTHER, SELFPAY ==
[2022-03-22 14:13] LABS: Calculated LDL 153 mg/dL (<100); Cholesterol 240 mg/dL (<200); HDL Cholesterol 58 mg/dL (40-60); TSH (W/Ref FT4) 1.05 uIU/mL (0.36-3.74); Triglyceride 145 mg/dL (<150); Vitamin B12 480 pg/mL (193-986)
== END 2022-03-22 18:30 | disposition home or self-care (01) ==
LOC: LBN 18:29
PROVIDERS: PCP Family Medicine; Visit Provider Family Medicine
DX: E78.5 Hyperlipidemia, unspecified (principal); Z00.00 Encounter for general adult medical examination without abnormal findings; E03.9 Hypothyroidism, unspecified; E53.8 Deficiency of other specified B group vitamins
CPT/HCPCS: 80061; 82607; 84443

== ENCOUNTER 2022-08-16 21:09 | Outpatient (REF) | payer OTHER, SELFPAY ==
[2022-08-16 21:42] LABS: ALT 42 U/L (14-59); AST 26 U/L (15-37); Albumin 4.8 g/dL (3.4-5.0); Alkaline Phosphatase 91 U/L (46-116); Anion Gap 9.4 mmol/L (3-11); BUN 14 mg/dL (7-18); CO2 27.6 mmol/L (21.0-32.0); CREATININE 0.9 mg/dL (0.55-1.02); Calcium 9.6 mg/dL (8.5-10.1); Calculated LDL 133 mg/dL (<100); Chloride 105 mmol/L (98-107); Cholesterol 221 mg/dL (<200); Estimated GFR 67.92 (mL/min/1.73m2); Glucose 99 mg/dL (74-106); HDL Cholesterol 62 mg/dL (40-60); Magnesium 2.3 mg/dL (1.8-2.4); Potassium 4.7 mmol/L (3.5-5.1); Sodium 142 mmol/L (136-145); Total Protein 7.9 g/dL (6.4-8.2); Triglyceride 131 mg/dL (<150)
== END 2022-08-16 21:10 | disposition home or self-care (01) ==
LOC: LBN 21:09
PROVIDERS: PCP Family Medicine; Visit Provider Family Medicine
DX: Z00.00 Encounter for general adult medical examination without abnormal findings (principal); E78.5 Hyperlipidemia, unspecified; R03.0 Elevated blood-pressure reading, without diagnosis of hypertension; Z13.6 Encounter for screening for cardiovascular disorders
CPT/HCPCS: 80053; 80061; 83735

== ENCOUNTER 2022-08-28 08:20 | Outpatient (CLI) | payer OTHER, SELFPAY | END 2022-08-28 08:21 | disposition home or self-care (01) | PROVIDERS: PCP Family Medicine; Visit Provider Family Medicine | DX: R00.2 Palpitations (principal) | CPT/HCPCS: 93246 ==

== ENCOUNTER 2022-09-21 07:03 | Outpatient (CLI) | payer OTHER, SELFPAY | END 2022-09-21 07:04 | disposition home or self-care (01) | LOC: CARDOPNVT 07:03 | PROVIDERS: PCP Family Medicine; Visit Provider Internal Medicine Cardiovascular Disease | DX: R00.2 Palpitations (principal) | CPT/HCPCS: 93246 ==

== ENCOUNTER 2022-09-24 09:21 | Outpatient (CLI) | payer OTHER, SELFPAY ==
--- NOTE | 2022-09-24 09:29 | W.CARDEVENT ---
Date of service: 09/24/22 Time of Service: 09:29 Cardiac Event Recorder Referring Provider:: Bety Ziegler Indications:: Palpitations Cardiac Event Note: This is a 30-day cardiac event recorder Predominant rhythm was sinus with an average heart rate of 75. Minimum was 52, maximum 142 There were rare ventricular ectopic beats There were occasional atrial premature beats There were multiple self-limited atrial runs generally 4-6 beats in duration. There was no atrial fibrillation, no high-grade AV block, no pauses greater than 3 seconds Patient symptoms were reported. These generally corresponded to sinus rhythm in the 90s
== END 2022-09-24 09:22 | disposition home or self-care (01) ==
LOC: CARDOPNVT 09:21
PROVIDERS: PCP Family Medicine; Visit Provider Internal Medicine Cardiovascular Disease
DX: R00.2 Palpitations (principal); I49.1 Atrial premature depolarization

== ENCOUNTER 2022-10-26 13:17 | Outpatient (REF) | payer OTHER, SELFPAY ==
[2022-10-26 13:33] LABS: HCT 43.4 % (36.0-46.0); HGB 14.4 g/dL (11.2-15.7); MCH 28.6 pg (27.0-33.0); MCHC 33.2 % (32.0-36.0); MCV 86 fL (80-95); MPV 10.7 fL (8.0-11.0); Platelet Count 293 10^3/uL (130-400); RBC 5.04 10^6/uL (3.93-5.22); RDW 12.7 % (11.7-14.6); RDW-SD 39.8 fL; WBC 7.04 10^3/uL (4.4-10.8)
[2022-10-26 13:54] LABS: Ferritin 110 ng/mL (8-252)
[2022-10-26 16:03] LABS: Iron 78 ug/dL (50-170)
== END 2022-10-26 13:18 | disposition home or self-care (01) ==
LOC: LBN 13:17
PROVIDERS: PCP Family Medicine; Visit Provider Family Medicine
DX: R00.2 Palpitations (principal)
CPT/HCPCS: 85027; 82728; 83540

== ENCOUNTER 2023-07-18 10:35 | Outpatient (REF) | payer OTHER, SELFPAY ==
--- NOTE | 2023-07-18 07:30 | SKI_PTH ---
PATIENT: Ilana Jordan LOC: N U#:[id number] AGE/SX: 73/F ROOM: RE07/18/[address]: Jennifer Dorman MD, DC : 1950 BED: DIS: 07/18/2023 SPEC #: [id number] RECD: 07/18/23 13:09 STATUS: EDISON REBoby #: [id number] BRETT: 07/18/23 07:[address]: Jennifer Dorman DEPT: Surgical Specimen RECD BY: Zaria Gill Tissues: 1 - SKIN BIOPSY(SHAVE/PUNCH) Procedures: SKIN LEVEL 4 Comments: [id number]
== END 2023-07-18 10:36 | disposition home or self-care (01) ==
LOC: LBN 10:35
PROVIDERS: PCP Family Medicine; Referring Provider Family Medicine; Visit Provider Family Medicine
DX: L82.0 Inflamed seborrheic keratosis (principal)
CPT/HCPCS: 88305

== ENCOUNTER 2023-08-31 09:19 | Outpatient (REF) | payer OTHER, SELFPAY ==
[2023-08-31 10:10] LABS: Bilirubin Negative (Negative); Blood Moderate (Negative); Clarity Cloudy (Clear); Glucose Negative (Negative); Ketones Negative (Negative); Leukocyte Esterase Large (Negative); Nitrite Negative (Negative); Urobilinogen 0.2 mg/dL (Up to 0.2); pH 7.5 (5-8)
[2023-08-31 10:19] LABS: Bacteria Moderate HPF (Negative); C & S Indicated? Yes; Casts Negative LPF (Negative); Crystals Negative HPF (Negative); Epithelial Cells Rare HPF (Negative); Mucus Negative (Negative); Other Cells Rare Renal (Negative); WBC >50 HPF (0-5)
== END 2023-08-31 09:20 | disposition home or self-care (01) ==
LOC: LBN 09:19
PROVIDERS: PCP Family Medicine; Visit Provider Family Medicine
DX: R30.0 Dysuria (principal); B96.20 Unspecified Escherichia coli [E. coli] as the cause of diseases classified elsewhere
CPT/HCPCS: 87077; 81003; 81015; 87086; 87186

== ENCOUNTER 2023-10-18 13:18 | Outpatient (REF) | payer OTHER, SELFPAY ==
[2023-10-18 13:57] LABS: ALT 36 U/L (14-59); AST 21 U/L (15-37); Albumin 4.4 g/dL (3.4-5.0); Alkaline Phosphatase 89 U/L (46-116); Anion Gap 10.6 mmol/L (3-11); BUN 13 mg/dL (7-18); Bilirubin, Total 0.8 mg/dL (0.2-1.0); CO2 26.4 mmol/L (21.0-32.0); CREATININE 0.8 mg/dL (0.55-1.02); Calcium 9.4 mg/dL (8.5-10.1); Calculated LDL 131 mg/dL (<100); Chloride 104 mmol/L (98-107); Cholesterol 209 mg/dL (<200); Estimated GFR 77.75 (mL/min/1.73m2); Glucose 94 mg/dL (74-106); HDL Cholesterol 64 mg/dL (40-60); Potassium 4.7 mmol/L (3.5-5.1); Sodium 141 mmol/L (136-145); TSH (W/Ref FT4) 0.34 uIU/mL (0.36-3.74); Total Protein 7.4 g/dL (6.4-8.2); Triglyceride 74 mg/dL (<150); Vitamin B12 354 pg/mL (193-986)
[2023-10-18 14:27] LABS: FREE T4 1.04 ng/dL (0.76-1.46)
== END 2023-10-18 13:19 | disposition home or self-care (01) ==
LOC: LBN 13:18
PROVIDERS: PCP Family Medicine; Visit Provider Family Medicine
DX: I10 Essential (primary) hypertension (principal); E78.5 Hyperlipidemia, unspecified; E53.8 Deficiency of other specified B group vitamins; E03.9 Hypothyroidism, unspecified
CPT/HCPCS: 80053; 80061; 82607; 84439; 84443

== ENCOUNTER 2023-12-13 18:23 | Outpatient (REF) | payer OTHER, SELFPAY ==
[2023-12-13 13:27] LABS: Bilirubin Negative (Negative); Blood Trace-intact (Negative); Clarity Clear (Clear); Glucose Negative (Negative); Ketones Negative (Negative); Leukocyte Esterase Small (Negative); Nitrite Negative (Negative); Urobilinogen 0.2 mg/dL (Up to 0.2)
[2023-12-13 13:33] LABS: Bacteria Moderate HPF (Negative); C & S Indicated? Yes; Casts Negative LPF (Negative); Crystals Negative HPF (Negative); Epithelial Cells Rare HPF (Negative); Mucus Negative (Negative); RBC 0-2 HPF (0-2); WBC 20-50 HPF (0-5)
== END 2023-12-13 18:24 | disposition home or self-care (01) ==
LOC: LBN 18:23
PROVIDERS: PCP Family Medicine; Visit Provider Family Medicine
DX: R30.0 Dysuria (principal); N39.0 Urinary tract infection, site not specified
CPT/HCPCS: 87077; 81003; 81015; 87086; 87186

== ENCOUNTER 2024-07-29 02:03 | Outpatient (CLI) | payer OTHER, SELFPAY ==
--- NOTE | 2024-07-29 07:45 | DI.CT_ITS ---
Exam(s) CT NECK W EXAM: CT NECK W CLINICAL HISTORY: Rt oropharyngeal pain with eating,odynophagia,r13.10. TECHNIQUE: Imaging Protocol: Axial computed tomography images with coronal and sagittal reformatted images were created and reviewed. CONTRAST MATERIAL: Intravenous: Omnipaque 350 Contrast volume:100mL COMPARISON: CT HEAD WITHOUT CONTRAST from 03/22/2014 FINDINGS: There is artifact from the patient's dental work. Visualized intracranial structures: Within normal limits. Orbits and orbital soft tissues: Within normal limits. Visualized paranasal sinuses: There is mild mucosal thickening in few of the ethmoid air cells. The re is also mild mucosal thickening in the right maxillary sinus. The remaining visualized paranasal sinuses are clear. No air-fluid levels are present. Nasopharynx: Within normal limits. Oropharynx: Within normal limits. Hypopharynx: There is a face mint of the left piriform sinus. Larynx: Within normal limits. Retropharyngeal space: Within normal limits. Parotids/submandibular: Within normal limits. Thyroid gland: Within normal limits. Lymphadenopathy: There is scattered lymph nodes seen along the level one to level three all measurin g less than 8 mm in short axis diameter which are physiologic in nature. Trachea: Within normal limits. Lung apices: Within normal limits. Bones: Within normal limits for the patient's age. Carotids/Jugular: Within normal limits. Atherosclerotic calcification is seen in the carotid arterie s. Soft tissues: Within normal limits. IMPRESSION: 1. No definite mass or cervical adenopathy is seen. 2. There is a face mint of the left piriform sinus. This may be artifactual but if there is continue d clinical concern, right visualization through their [place] could be should be considered. RADIATION DOSE DELIVERED: 239.7mGy.cm Total DLP 239.7mGy.cm Total DLP DATA REPOSITORY: All CT scans at this facility are submitted to the National Radiology Data Registry (NRDR) Dose Index Registry (DIR) with the [employer] ([employer]). RADIATION OPTIMIZATION: All CT scans at this facility use at least one of these dose optimization te chniques: automated exposure control; mA and/or kV adjustment per patient size (includes targeted exa ms where dose is matched to clinical indication); or iterative reconstruction.
[2024-07-29 15:05] LABS: CREATININE 0.9 mg/dL (0.55-1.02); Estimated GFR 67.08 (mL/min/1.73m2)
[2024-07-29] MEDS: Normal Saline - Diluent 50 ML VIAL IJ (15:47)
[2024-07-29] MEDS: Omnipaque 350 MG/ML 100 ML BTL IJ (15:49)
== END 2024-07-29 02:23 ==
LOC: DI 02:03
PROVIDERS: PCP Family Medicine; Visit Provider Otolaryngology
DX: R13.10 Dysphagia, unspecified
CPT/HCPCS: 70491; 82565; J3490

== ENCOUNTER 2024-08-20 21:21 | Outpatient (REF) | payer OTHER, SELFPAY | END 2024-08-20 21:22 | disposition home or self-care (01) | LOC: LBN 21:21 | PROVIDERS: PCP Family Medicine; Visit Provider Family Medicine | DX: M54.50 Low back pain, unspecified (principal) | CPT/HCPCS: 87077; 87086; 87186 ==

== ENCOUNTER 2024-11-10 16:11 | Outpatient (REF) | payer OTHER, SELFPAY ==
[2024-11-10 19:36] LABS: ALT 33 U/L (14-59); AST 23 U/L (15-37); Albumin 4.4 g/dL (3.4-5.0); Alkaline Phosphatase 95 U/L (46-116); Anion Gap 14.0 mmol/L (3-11); BUN 14 mg/dL (7-18); Bilirubin, Total 1.0 mg/dL (0.2-1.0); CO2 23.0 mmol/L (21.0-32.0); Calcium 9.4 mg/dL (8.5-10.1); Calculated LDL 99 mg/dL (<100); Chloride 102 mmol/L (98-107); Cholesterol 168 mg/dL (<200); Estimated GFR 77.27 (mL/min/1.73m2); Glucose 93 mg/dL (74-106); HDL Cholesterol 51 mg/dL (>or=50); Potassium 4.2 mmol/L (3.5-5.1); Sodium 139 mmol/L (136-145); TSH (W/Ref FT4) 0.40 uIU/mL (0.36-3.74); Total Protein 7.2 g/dL (6.4-8.2); Triglyceride 94 mg/dL (<150)
[2024-11-10 20:18] LABS: Vitamin B12 535 pg/mL (193-986)
[2024-11-10 23:31] LABS: Hepatitis C Ab w Rflx HCV PCR Negative (Negative)
== END 2024-11-10 16:12 | disposition home or self-care (01) ==
LOC: LBN 16:11
PROVIDERS: PCP Family Medicine; Visit Provider Family Medicine
DX: I10 Essential (primary) hypertension (principal); E53.8 Deficiency of other specified B group vitamins; Z11.59 Encounter for screening for other viral diseases; Z78.0 Asymptomatic menopausal state; E03.9 Hypothyroidism, unspecified
CPT/HCPCS: 80053; 80061; 86803; 82607; 84443

== ENCOUNTER 2024-11-11 02:27 | Outpatient (CLI) | payer OTHER, SELFPAY ==
--- NOTE | 2024-11-11 07:15 | DI.DEXA_ITS ---
Exam(s) XR DEXA BONE DENSITY W/WO ASCENCION EXAM: XR DEXA BONE DENSITY W/WO ASCENCION CLINICAL HISTORY: postmenopausal state,asymptomatic,z78.0 TECHNIQUE: Routine DEXA evaluation of the lumbar spine, hip, or forearm. COMPARISON: DX ASCENCION from 10/15/2007 FINDINGS: Performed on a Hologic unit. Lateral image: No compression fracture evident. Lumbar Spine total T-score: -2.5 which is osteoporosis range. Previous reading in 2007 was -1.6. Hip total T-score:-1.9. Previous reading was -1.7 in October 2007. Both are in osteopenia range. Independent reading at the level of the femoral neck yields T-score of -1.8 which is also osteopenia range. Forearm total T-score: -2.8, which is in the osteoporosis range IMPRESSION: Bone mineral density measures in the osteoporosis range. Fracture risk is high. Note: Any spine fracture indicates 5x risk for subsequent spine fracture and 2x risk for subsequent hip fracture. World Health Organization criteria for BMD interpretation classify patients: Normal...... T- Score at or above -1.0 Osteopenic... T- Score between -1.0 and -2.5 Osteoporosis... T-Score at or below -2.5
== END 2024-11-11 02:47 ==
LOC: DI 02:27
PROVIDERS: PCP Family Medicine; Visit Provider Family Medicine
DX: Z78.0 Asymptomatic menopausal state (principal); M81.0 Age-related osteoporosis without current pathological fracture
CPT/HCPCS: 77080

== ENCOUNTER 2025-03-02 13:22 | Outpatient (REF) | payer MEDICARE, SELFPAY ==
--- NOTE | 2025-03-02 12:00 | SKI_PTH ---
PATIENT: Ilana Jordan LOC: NEW U#:[id number] AGE/SX: 74/F ROOM: RE03/02/[address]: Jennifer Dorman MD, DC : 1950 BED: DIS: 03/02/2025 SPEC #: [id number] RECD: 03/03/25 12:44 STATUS: EDISON REBoby #: [id number] BRETT: 03/02/25 12:[address]: Jennifer Dorman DEPT: Surgical Specimen RECD BY: Zaria Gill Tissues: 1 - SKIN BIOPSY(SHAVE/PUNCH) Procedures: SKIN LEVEL 4 Comments: [id number]
== END 2025-03-02 13:23 | disposition home or self-care (01) ==
LOC: LBN 13:22
PROVIDERS: PCP Family Medicine; Visit Provider Family Medicine
DX: L43.0 Hypertrophic lichen planus (principal)
CPT/HCPCS: 88305